=== PATIENT | male | born 2000 | race Caucasian/White ===

== ENCOUNTER 2021-01-25 09:09 | Emergency (ER) | payer BC ==
--- NOTE | 2021-01-25 10:26 | ED ---
Male Urogenital HPI - General Chief complaint: Urogenital Stated complaint: groin injury Time Seen by Provider: 01/25/21 09:20 Source: patient, RN notes reviewed Mode of arrival: ambulatory Limitations: no limitations - History of Present Illness Initial comments: 20-year-old male presents emergency Department with chief complaint testicular pain. Patient states that he had an episode after some tubing and just came. Patient states resolve but returned today. Patient states currently the right side with no significant swelling. No dysuria no hematuria no abdominal complaints no prior scrotal injuries or surgeries. - Related Data Allergies Allergy/AdvReac Type Severity Reaction Status Date / Time No Known Allergies Allergy Verified 01/25/21 09:17 Review of Systems ROS Statement: Those systems with pertinent positive or pertinent negative responses have been documented in the HPI. ROS Other: All systems not noted in ROS Statement are negative. Past Medical History Past Medical History: No Reported History History of Any Multi-Drug Resistant Organisms: None Reported Past Surgical History: No Surgical Hx Reported Past Psychological History: No Psychological Hx Reported Smoking Status: Never smoker Past Alcohol Use History: None Reported Past Drug Use History: None Reported General Exam Limitations: no limitations General appearance: alert, in no apparent distress Head exam: Present: atraumatic, normocephalic, normal inspection Neck exam: Present: normal inspection, full ROM. Absent: tenderness, meningismus, lymphadenopathy Respiratory exam: Present: normal lung sounds bilaterally. Absent: respiratory distress, wheezes, rales, rhonchi, stridor Cardiovascular Exam: Present: regular rate, normal rhythm, normal heart sounds. Absent: systolic murmur, diastolic murmur, rubs, gallop, clicks GI/Abdominal exam: Present: soft, normal bowel sounds. Absent: distended, tenderness, guarding, rebound, rigid exam: Present: testicular tenderness. Absent: scrotal swelling Course Vital Signs 01/25/21 09:14 Temperature 98.0 F Pulse Rate 81 Respiratory 18 Rate Blood Pressure 125/80 O2 Sat by Pulse 97 Oximetry Medical Decision Making - Medical Decision Making Ultrasound shows evidence of a hydrocele. This most likely is from an injury itself. This is very small hydrocele no other complaints or findings. Patient we discharged in stable condition. Disposition Clinical Impression: Hydrocele Disposition: HOME SELF-CARE Condition: Stable Instructions (If sedation given, give patient instructions): Hydrocele (ED) Additional Instructions: Please return to the Emergency Department if symptoms worsen or any other concerns. Is patient prescribed a controlled substance at d/c from ED?: No Referrals: None,Stated [Primary Care Provider] - 1-2 days Time of Disposition: 11:44
--- NOTE | 2021-01-25 11:35 | US ---
EXAMINATION TYPE: US scrotum with doppler. Grayscale and color Doppler Duplex imaging performed of jojo chavez scrotum. DATE OF EXAM: 01/25/2021 COMPARISON: NONE CLINICAL HISTORY: pain. Patient fell off tube on the water and felt a weird sensation in his right te sticle. EXAM MEASUREMENTS: TESTICLES: Right Testicle: 4.3 x 2.8 x 2.6 cm Left Testicle: 4.3 x 2.2 x 2.9 cm EPIDIDYMIS HEAD: Right Epididymis: 1.1 cm Left Epididymis: 0.8 cm Doppler performed to assess for testicular vascularity; good bilateral color flow and waveforms are s een. There is no evidence of testicular torsion. Presence of hydroceles: Yes, small hydrocele on the right Presence of varicoceles: No Normal bilateral testicular parenchyma. IMPRESSION: Small right hydrocele. No evidence of torsion.
[2021-01-25 11:53] VITALS: BP 128/78; PULSE 78; RESP 16; TEMP 98.2
== END 2021-01-25 11:52 | disposition home or self-care (01) ==
LOC: EC 09:09
DX: N43.3 Hydrocele, unspecified (principal)
CPT/HCPCS: 76870; 93975; 99284